=== PATIENT | female | born 1980 | race Caucasian/White ===

== ENCOUNTER → 2020-06-30 13:21 | Outpatient (CLI) | payer OTHER, SELFPAY ==
[2020-06-30 14:51] LABS: COVID19 -Nasal RAPID Negative (Negative)
== END ==
PROVIDERS: Visit Provider Physician Assistant
DX: Z11.59 Encounter for screening for other viral diseases (principal)
CPT/HCPCS: 87635; C9803

== ENCOUNTER 2020-07-02 10:29 | Day surgery (SDC) | payer OTHER, SELFPAY ==
[2020-07-02] VITALS (7 sets, daily range): BP systolic 93–118; BP diastolic 57–76; PULSE 70–83; RESP 12–16; TEMP 36.3–37.1; O2SAT 99–100; BMI 27.4
--- NOTE | 2020-07-02 | PATH_ITS ---
[facility] Accession Number: [id number] . 01 Material submitted: . body - GASTRITIS . 01 Clinical history: . A: GASTRITIS R/O HP . 02 Diagnosis: Stomach, Biopsies: Gastric antral and body mucosa with mild chronic inflammation. Negative for Helicobacter organisms by immunohistochemistry. Negative for intestinal metaplasia. Negative for dysplasia or malignancy. MRV 07/07/2020 1524 Local . 02 Electronically signed: . Daron Pimentel MD, PhD, Pathologist NPI- [id number] . 01 Gross description: . GASTRITIS: Received in formalin are 2 fragment(s) of johnson, soft tissue measuring 0.3 x 0.2 x 0.1 cm to 0.2 x 0.2 x 0.1 cm submitted entirely in 1 cassette(s) /QBJ 07/03/2020 0712 Local . 02 Microscopic: . An immunohistochemical stain was performed to evaluate for Helicobacter organisms and is negative. The control stain showed appropriate reactivity. . * This test was developed and its performance characteristics determined by [facility]. It has not been cleared or approved by the U.S. Food and Drug Administration. The FDA has determined that such clearance or approval is not necessary. This test is used for clinical purposes. It should not be regarded as investigational or for research. . 02 Pathologist provided ICD-10: K29.70 . 02 CPT . 140836, R12945 Performed at: 01 [facility] [address] [facility], [place], [place] [id number] MD Lee Lunsford MD Phone: [phone] Performed at: 02 [facility] [place] [address] [place], [place] [id number] MD Salena Hendrix MD Phone: [phone]
--- NOTE | 2020-07-02 10:54 | PM.HP.1 ---
History of Present Illness History of Present Illness Date Patient Seen: 07/02/20 Chief complaint: EGD Narrative: Abdominal discomfort unresponse to the medication Patient History Family & Social History Social History: household members children Tobacco & Substance use: Smoking Status Never smoker alcohol intake current alcohol intake frequency a few times a month Substance Use Type does not use Meds Home Medications and Allergies Home Medications Medication Instructions Recorded Confirmed Type No Known Home Medications 07/02/20 07/02/20 History Allergies Allergy/AdvReac Type Severity Reaction Status Date / Time No Known Drug Allergies Allergy Verified 07/02/20 10:44 Exam Vital Signs (past 8 hours): - 07/02/20 10:47 Temperature 97.6 F Pulse Rate 80 Respiratory Rate 16 Blood Pressure 118/76 Pulse Oximetry 100 Oxygen Delivery Method Room Air Narrative Exam Narrative: Oropharynx free of lesions Chest clear to auscultation percussion Cardiac exam reveals no S3 or murmur Assessment & Plan Assessment & Plan narrative: Intermittent abdominal pain unresponsive to medication. EGD to rule out peptic disease. Risks, benefits, alternatives have been explained.
--- NOTE | 2020-07-02 10:55 | PM.OP.ENDO ---
Operative Date/Time/Diagnoses Date of procedure: 07/02/20 Pre-op diagnosis: See indication and findings Procedure & Clinicians Study performed: EGD Same procedure as scheduled: Yes Indications: Abdominal pain Surgeon: Aram Manzo Procedure Notes Procedure in detail: After informed consent was obtained the patient was placed in left lateral decubitus position. The video upper scope placed into the oropharynx and with the patient's help swelled the esophagus. The esophagus stomach and duodenum were carefully examined. On withdrawal, retroflexed view of the GE junction was performed. The scope was removed. The patient tolerated procedure well. Blood loss none Complications none Sedation Total sedation time 11 minutes Versed 7 mg fentanyl 100 mg IV titration Findings 1. Normal esophagus 2. Mildly erythematous antrum in a diffuse fashion biopsies taken to rule out Helicobacter 3. Normal duodenal bulb and sweep Will await pathology results and decide on next steps. Symptoms are however very intermittent
[2020-07-02] MEDS: SODIUM CHLORIDE 0.9% 1,000 ML 21 ML IV (10:58)
[2020-07-02] MEDS: fentaNYL 250 MCG/5 ML INJ IV (11:14)
[2020-07-02] MEDS: MIDAZOLAM 5 MG/5 ML VIAL IV (11:22)
== END 2020-07-02 12:30 | disposition home or self-care (01) ==
LOC: ENDO 10:31
PROVIDERS: PCP Family Medicine; Referring Provider Internal Medicine Gastroenterology; Visit Provider Internal Medicine Gastroenterology
PROC: 0DJ08ZZ Inspection of Upper Intestinal Tract, Via Natural or Artificial Opening Endoscopic (ICD-10-PCS; CPT 43235; principal; 2020-07-02 11:30)
DX: K29.50 Unspecified chronic gastritis without bleeding (principal)
CPT/HCPCS: 43239; J2250; J3010

== ENCOUNTER → 2021-07-31 15:12 | Outpatient (ROUT) | payer OTHER, SELFPAY ==
[2021-07-31 15:20] LABS: COVID19 -Nasal RAPID Negative (Negative)
== END ==
PROVIDERS: PCP Family Medicine; Visit Provider Specialist
DX: Z20.822 Contact with and (suspected) exposure to COVID-19 (principal)
CPT/HCPCS: 87635; C9803

== ENCOUNTER 2021-08-03 06:12 | Day surgery (SDC) | payer OTHER, SELFPAY ==
[2021-07-30 10:03] VITALS: BMI 30.9
[2021-08-03] VITALS (9 sets, daily range): BP systolic 111–138; BP diastolic 73–84; PULSE 76–115; RESP 10–16; TEMP 36.7–37.3; O2SAT 97–100; BMI 30.9
[2021-08-03] MEDS: LACTATED RINGERS 1,000 ML 42 ML IV (07:07)
--- NOTE | 2021-08-03 07:46 | PM.PREOP ---
Pre-operative Note Interval Note History & Physical reviewed/Exam performed by Physician: Yes Changes to H&P: No
[2021-08-03] MEDS: CEFAZOLIN 2 GM/20 ML SYRINGE IV (07:55)
--- NOTE | 2021-08-03 08:15 | SUR.OPER ---
Lithotomy on padded OR bed, head on pillow, arms secured on padded arm boards at <90 degrees abduction. Legs secured in padded yellow fins stirrups.
[2021-08-03] MEDS: BUPIVACAINE LIPOSOME 266 MG/20 ML VIAL INJ (08:25)
[2021-08-03] MEDS: BUPIVACAINE 0.5% (PF) 30 ML, EPINEPHrine 0.15 MG INJ (08:26)
[2021-08-03] MEDS: BELLADONNA/OPIUM SUPPOSITORIES 1 EACH PR (08:29)
--- NOTE | 2021-08-03 08:59 | P.OP_ITS ---
Operative Date/Time/Diagnoses Date of procedure: 08/03/21 Time of procedure: 08:59 Pre-op diagnosis: Urinary incontinence Post-op diagnosis: same Procedure & Clinicians Procedure: 1. Placement suburethral transobturator sling. Same procedure as scheduled: Yes Indications: 1. Stress urinary incontinence Surgeon: Catherine Kong Click Yes if Unassisted: Yes Anesthesia Type: General and Local (1.33% Exparel) Operative Notes Findings: 1. Urethra-loss of urethrovesical angle. No lesions. 2. Bladder-normal urothelium throughout. Normal ureteral orifices bilaterally. No evidence of perforation following positioning of bilateral transfer needles. 3. Normal vaginal epithelium. 4. Grade 2 cystocele 5. Mild uterine descensus multiparous os without lesion. Closure Type: primary Specimen(s): none sent Prosthetic devices, grafts, tissues, transplants, or devices: Obtryx mesh sling. Applied: catheter (Sixteen Luxembourgish Montez catheter) Estimated Blood Loss (mL): 10 Blood products transfused: none Procedure in detail: Patient was positioned in supine was administered general anesthesia. She was then repositioned in semilithotomy and the lower abdomen, genitalia, and groin, and vaginal vault were prepped and draped in sterile fashion. A 16 Luxembourgish Montez catheter was inserted into the bladder and the balloon inflated to 10 cc. Bladder contents were drained. Next a solution of 0.5% Marcaine with epinephrine was instilled in the skin and subcutaneous tissue overlying the superior medial aspect of the obturator fossa bilaterally. The same solution was then used to infiltrate the midline anterior vaginal wall over the urethra and laterally towards the endopelvic fascia. Small stab incisions were made on the perineum equal distant from the clitoris on either side. A midline incision was made over the mid urethra. The Metzenbaum scissor then insinuated in the midline vaginal incision and a the paravaginal tissue was opened with blunt dissection and then the endopelvic fascia perforated with the close scissors just behind the pubic ramus bilaterally. The index finger was then insinuated in the midline vaginal incision and further blunt dissection was carried out along the posterior pubic ramus to the area of the obturator fascia bilaterally. Next, the transfer needles were passed from the perineal incisions to the midline anterior vaginal incision bilaterally. The Montez balloon was then deflated and the Montez was removed. Cystoscopy was then performed and inadvertent perforation of the bladder or bladder neck was ruled out. Cystoscope was then removed and the Montez catheter was replaced and the balloon inflated again to 10 cc. Bladder contents were then drained. The mesh sling was then connected to the transfer needle bilaterally and they were gently withdrawn with the Metzenbaum scissors position between the midline urethra and the mesh. Appropriate tensioning was then taken with care. The mesh and sleeves were then transected 2-2.5 cm above the plane of the skin of the perineum bilaterally. The cellophane sleeves were then removed. The mesh tails were then tucked in the subcutaneous fat posteriorly on both sides. Perineal incisions were then reapproximated with a single interrupted 4-0 Monocryl bilaterally. The midline vaginal incision was then closed with a running intermittently locking 2-0 Vicryl. Hemostasis was excellent. Exparel was then instilled in skin and subcutaneous area of the perineum on both sides below the incision and in the anterior vaginal wall lateral and posterior to the midline vaginal incision. The Montez catheter was then connected to gravity drainage. The patient was then repositioned in supine, was awakened, and transferred to [facility] for transport to PACU in stable condition. Complications: none Post-operative Condition: stable Disposition: PACU Plan for aftercare: Discharge home.
--- NOTE | 2021-08-03 11:19 | SUR.PHASEII ---
Montez care and teaching done with patient with demonstration and teach back. Changed to leg bag per patient request and had used leg bag previously with her father. Clear yellow urine. Denied pain. Medications reviewed. Pt verbalized understanding. Discharged to home after able to ambulate independently.
== END 2021-08-03 11:00 | disposition home or self-care (01) ==
LOC: OR 06:13
PROVIDERS: PCP Family Medicine; Referring Provider Specialist; Visit Provider Specialist
PROC: (CPT 57288; principal; 2021-08-03 07:45)
DX: N39.3 Stress incontinence (female) (male) (principal); N81.10 Cystocele, unspecified
CPT/HCPCS: 57288; C1781; C9290; J0171; J0690; J1100; J1885; J2250; J2405; J2704; J3010

== ENCOUNTER → 2023-04-08 14:04 | Outpatient (CLI) | payer OTHER, SELFPAY ==
--- NOTE | 2023-04-08 | DI.ECHO.S_ITS ---
[place] [facility]---------+ [facility] +---------+ : : [address] : : : : [id number] : : : : Phone: [phone]+ Echocardiogram Report + + :Name: JEANNIE CARRANZA Study Date: 04/08/2023 Height: 66 in : :[facility] ReadingLocation: Weight: 169 lb : : Gender: Female BSA: 1.9 m2 : :: 1980 Age: 42 yrs BP: 137/86 mmHg: :Reason For Study: Palpitations : :Ordering Physician: CAITLIN, : :DEDRICK Performed By: Olivia Villa : :Referring: DEDRICK TUCKER : + + Interpretation Summary The ejection fraction is estimated to be 60-65%. Diastolic parameters suggest probable normal left ventricular diastolic function and normal filling pressures. The right ventricle is normal in size and function. No significant valvular abnormalities. Pulmonary artery pressures cannot be estimated because of the lack of a measurable TR jet velocity. Procedure: A two-dimensional transthoracic echocardiogram with color flow and Doppler was performed. The study quality was technically adequate. There is no prior echocardiogram noted for this patient. The patient was in normal sinus rhythm during the exam. Left Ventricle: The left ventricle is normal in size and wall thickness. The ejection fraction is estimated to be 60-65%. Diastolic parameters suggest probable normal left ventricular diastolic function and normal filling pressures. Right Ventricle: The right ventricle is normal in size and function. Atria: The left atrial size is normal. Right atrial size is normal. There is no Doppler evidence for an interatrial shunt. Mitral Valve: The mitral valve is normal. There is no mitral valve stenosis. There is trace mitral regurgitation. Aortic Valve: The aortic valve is trileaflet. The aortic valve opens well. There is no aortic valve stenosis. No aortic regurgitation is present. Tricuspid Valve: The tricuspid valve is not well visualized. There is no tricuspid stenosis. There is trace tricuspid regurgitation. Pulmonary artery pressures cannot be estimated because of the lack of a measurable TR jet velocity. Pulmonic Valve: The pulmonic valve leaflets are thin and pliable; valve motion is normal. There is no pulmonic valvular stenosis. There is trace pulmonic regurgitation. Great Vessels: The aortic root is normal size. The ascending aorta is normal in size. The pulmonary artery is normal size. The IVC is of normal diameter and collapses greater than 50% with a sniff. This suggests a low right atrial pressure of 3 mm Hg. Pericardium/ Pleura There is no pericardial effusion. There is no pleural effusion. MMode/2D Measurements & Calculations LVIDd: 4.5 cm LVOT diam: 1.8 cm LVIDs: 2.7 cm Ao root diam: 3.0 cm FS: 40.0 % asc Aorta Diam: 2.9 cm IVSd: 0.60 cm LVPWd: 0.70 cm LV little. diameter/BSA (cm/m^2): 2.4 LV sys. diameter/BSA (cm/m^2): 1.5 LA A2 area: 11.9 cm2 RA long axis: 3.9 cm LA A4 area: 12.1 cm2 RA area: 10.2 cm2 LA length (vol): 4.8 cm RA vol: 22.4 ml LA vol: 25.5 ml RA : 12.0 ml/m2 LA vol index: 13.7 ml/m2 RVD1 (basal): 3.5 cm LVLs ap4: 6.0 cm LVLd ap2: 7.9 cm TAPSE_phl: 2.6 cm LVLs ap2: 6.3 cm Doppler Measurements & Calculations Ao V2 max: 131.8 cm/sec LVOT Max Tru: 105.3 cm/sec Ao V2 mean: 92.5 cm/sec LV V1 max P.4 mmHg Ao max P.0 mmHg LV V1 VTI: 22.4 cm Ao mean P.2 mmHg KIARRA(I,D): 1.9 cm2 Ao V2 VTI: 29.6 cm KIARRA(V,D): 2.0 cm2 sev ratio: 0.76 KIARRA indexed to BSA (cm^2/m^2): 1.0 MV E max tru: 92.6 cm/sec PA V2 max: 95.0 cm/sec MV A max tru: 58.8 cm/sec PA V2 mean: 65.2 cm/sec MV E/A: 1.6 PA mean P.0 mmHg Med Peak E' Tru: 13.2 cm/sec PA pr(Accel): 8.8 mmHg E/E' med: 7.0 Lat Peak E' Tru: 17.8 cm/sec E/E' lat: 5.2 E/e' average: 6.1 MV dec time: 0.16 sec SV(LVOT): 57.1 ml AV VR_phl: 0.80 KIARRA(VTI)/BSA_phl: 1.0 Reading Physician:04:33 PM
--- NOTE | 2023-04-13 09:59 | DI.NM.S_ITS ---
DATE OF SERVICE: 04/08/2023 PROCEDURE PERFORMED: Exercise treadmill stress test without imaging. ORDERING PROVIDER: Minal Kraft DO, and MITCHELL Ocampo. INDICATIONS: The patient is a 42-year-old female with a long history of palpitations, tachycardia, and atypical chest discomfort. FINDINGS: 1. The patient was able to exercise for a total of 9 minutes, 14 seconds on a standard Tan protocol suggesting good exercise capacity with an PACHECO of -8%, achieving 10.1 METS. 2. She had a normal blood pressure response to exercise with a resting blood pressure of 120/80, increasing to a maximum of 180/90. She had an accelerated heart rate response to exercise with a resting heart rate of 91 bpm increasing to 122 bpm after 1 minute of exercise, 158 bpm after 3 minutes of exercise, and achieving a maximum heart rate of 188 bpm (107% of her predicted maximum). Her heart rate remained elevated in recovery, remaining in the 120-145 range 19 minutes into recovery and increased when the patient stood up with blood pressures falling down to 100/78. 3. She had no chest discomfort with exercise but described 1/10 chest tightness in recovery and also reported dizziness and some blurred vision in recovery when her blood pressure had fallen down to 100/78 with heart rates in the 120-140 range. 4. Her resting ECG shows sinus rhythm with normal appearing P waves. With stress, there are no significant ST-segment shifts or obvious arrhythmias and no obvious change in P wave morphology, although an increase in P wave amplitude. IMPRESSION: 1. Normal exercise treadmill study for ischemia. 2. Good exercise capacity with atypical chest discomfort in recovery associated with an accelerated heart rate response to exercise and persistent sinus tachycardia persisting late into recovery with associated relative low blood pressures and dizziness. P wave morphology appeared to remain unchanged, although with increased amplitude with stress. There were no other obvious arrhythmias. TyshawnVy izaguirre - OBI/mahsa/neida doc#: [id number]/job#: [id number] dd: 04/08/2023 17:05:00 dt: 04/08/2023 18:50:00 DICTATING MD/COPIES TO: Jay Carpenter MD; Minal Kraft M.D.; MITCHELL Ocampo COPIES MNE: SONYAO; ;
== END ==
PROVIDERS: PCP Family Medicine; Referring Provider Nurse Practitioner Acute Care; Visit Provider Nurse Practitioner Acute Care
DX: R00.2 Palpitations; R07.9 Chest pain, unspecified
CPT/HCPCS: 93017; 93306

== ENCOUNTER → 2025-06-05 16:59 | Outpatient (CLI) | payer OTHER, SELFPAY ==
[2025-06-05 20:19] LABS: Appearance Urine UA CLEAR; Bilirubin Urine UA NEGATIVE (NEGATIVE); Color Urine UA YELLOW; Glucose Urine UA NEGATIVE (Negative); Ketones Urine UA NEGATIVE (NEGATIVE); Leukocyte Esterase Urine UA NEGATIVE (NEGATIVE); Nitrite Urine UA NEGATIVE (Negative); Occult Blood Urine UA NEGATIVE (Negative); Protein Urine UA NEGATIVE (Negative); Specific Gravity Urine UA 1.010 (1.000-1.035); Urobilinogen Urine UA 0.2 E.U./dL (0.2)
[2025-06-05 20:20] LABS: pH Urine UA 6.0 (4.5-8.0)
[2025-06-05 20:24] LABS: Culture Indicated Urine Cult Not Indicated
== END ==
PROVIDERS: PCP Family Medicine; Visit Provider Obstetrics & Gynecology Gynecology
DX: Z98.890 Other specified postprocedural states (principal); N39.8 Other specified disorders of urinary system; N32.81 Overactive bladder; N39.3 Stress incontinence (female) (male); Z87.440 Personal history of urinary (tract) infections
CPT/HCPCS: 81001